=== PATIENT | female | born 1990 | race Caucasian/White ===

== ENCOUNTER 2018-04-26 11:45 | Emergency (ER) | payer MEDICAID ==
[~2018-04-26] VITALS: Ht 162.6 cm; Wt 62.1 kg
[2018-04-26] MEDS ORDERED: KETOROLAC TROMETHAMINE 30 MG INJ IM ONE (12:00)
[2018-04-26] MEDS ORDERED: KETOROLAC TROMETHAMINE 30 MG INJ ONE (12:04)
--- NOTE | 2018-04-26 12:15 | NUR ---
Patient discharged to home in stable conditon. Written and verbal after care instructions given. Patient verbalizes understanding of instructions.PT WALKS IN STEADY GAIT,
== END 2018-04-26 12:17 | disposition home or self-care (01) ==
LOC: ER 11:45
DX: R10.2 Pelvic and perineal pain (principal)
CPT/HCPCS: 96372; 99283; J1885; A4663